=== PATIENT | male | born 1995 | race Caucasian/White ===

== ENCOUNTER 2017-01-30 09:34 | Emergency (ER) | payer OTHER ==
[~2017-01-30] VITALS: Wt 63.6 kg
[2017-01-30] MEDS ORDERED: ONDANSETRON 4 MG INJ IV STA (12:12)
[2017-01-30] MEDS ORDERED: KETOROLAC 30 MG INJ IV STA (12:12)
[2017-01-30] MEDS ORDERED: SOD CHLORIDE 0.9% 1,000 ML IV STA (12:12)
[2017-01-30] MEDS ORDERED: ACETAMINOPHEN 325 MG TAB PO ONE (12:30)
[2017-01-30 13:18] LABS: BASOPHILS % 0.2 % (0.0-2.0); HEMOGLOBIN 15.4 g/dl (14.0-18.0); LYMPHOCYTES # 0.8 10^3/ul (0.8-2.9); LYMPHOCYTES % 6.5 % (15.0-51.0); MEAN CORPUSCULAR HEMOGLOBIN 30.3 pg (29.0-33.0); MEAN CORPUSCULAR VOLUME 86.6 fl (82.0-101.0); MONOCYTE # 0.6 10^3/ul (0.3-0.9); MONOCYTES % 4.6 % (0.0-11.0); NEUTROPHILS % 88.4 % (39.0-77.0); PLATELET COUNT 163 10^3/UL (140-415); RED BLOOD COUNT 5.08 10^6/ul (4.70-6.10); RED CELL DISTRIBUTION WIDTH 11.8 % (11.5-14.5); WHITE BLOOD COUNT 12.7 10^3/ul (4.8-10.8)
[2017-01-30 13:33] LABS: ADD UMIC YES; UR ASCORBIC ACID NEGATIVE (NEGATIVE); UR BILIRUBIN (Dip) NEGATIVE (NEGATIVE); UR BLOOD (Dip) 2+ mg/dL (NEGATIVE); UR CLARITY CLEAR (CLEAR); UR COLOR YELLOW (YELLOW); UR GLUCOSE (Dip) NEGATIVE (NEGATIVE); UR KETONES (Dip) NEGATIVE (NEGATIVE); UR LEUKOCYTE ESTERASE (Dip) NEGATIVE Leu/ul (NEGATIVE); UR MUCUS MANY /HPF (NONE SEEN); UR NITRITE (Dip) NEGATIVE (NEGATIVE); UR RBC 1 /HPF (0-5); UR SPECIFIC GRAVITY (Dip) 1.021 (1.003-1.030); UR TOTAL PROTEIN (Dip) NEGATIVE (NEGATIVE); UR UROBILINOGEN (Dip) NEGATIVE (NEGATIVE)
[2017-01-30 13:44] LABS: ALBUMIN/GLOBULIN RATIO 1.51; BILIRUBIN,INDIRECT 0.4 mg/dl (0-1.1); BILIRUBIN,TOTAL 0.4 mg/dl (0.2-1.3); CALCIUM 9.7 mg/dl (8.4-10.2); CREATININE 0.99 mg/dl (0.61-1.24); TOTAL PROTEIN 8.3 g/dl (6.1-8.1)
[2017-01-30] MEDS ORDERED: ACET500C5 PO (14:23)
[2017-01-30] MEDS ORDERED: ONDA8TAB14 PO (14:23)
[2017-01-30] MEDS ORDERED: IBUP-1542 PO (14:23)
--- NOTE | 2017-01-30 14:27 | ERD ---
ER Documentation Chief Complaint Date/Time DATE: 01/30/17 TIME: 14:24 Chief Complaint randle, n/v HPI This 21-year-old male complains of fever and headache and vomiting for last 2 days. Denies diarrhea or abdominal pain. Has history of migraines in the soles similar although somewhat worse. He is taking one ibuprofen at home without relief. ROS All systems reviewed and are negative except as per history of present illness. Medications Home Meds Active Scripts Ibuprofen* (Motrin*) 600 Mg Tab, 600 MG PO Q6, #15 TAB Prov:LIZ KIDD MD 01/30/17 Acetaminophen* (Tylophen*) 500 Mg Capsule, 1 CAP PO Q6H Y for PAIN AND OR ELEVATED TEMP, #15 CAP Prov:LIZ KIDD MD 01/30/17 Ondansetron (Ondansetron Odt) 8 Mg Tab.rapdis, 8 MG PO Q6H Y for NAUSEA AND/OR VOMITING, #8 TAB Prov:LIZ KIDD MD 01/30/17 Allergies Allergies: Coded Allergies: No Known Allergy (Unverified , 04/19/13) PMhx/Soc Hx Miscellaneous Medical Probl: No (DENIES SURGERIES/PMH) Hx Alcohol Use: No Hx Substance Use: No Hx Tobacco Use: No Physical Exam Vitals Vital Signs Date Time Temp Pulse Resp B/P Pulse Ox O2 Delivery O2 Flow Rate FiO2 01/30/17 10:08 101.4 106 20 112/67 95 Physical Exam Const: []Alert, [id number]. Head: Atraumatic Eyes: Normal Conjunctiva ENT: Normal External Ears, Nose and Mouth.Oropharynx and TMs normal. Neck: Full range of motion..~ No meningismus. Resp: Clear to auscultation bilaterally Cardio: Regular rate and rhythm, no murmurs Abd: Soft, non tender, non distended. Normal bowel sounds Skin: No petechiae or rashes Back: No midline or flank tenderness Ext: No cyanosis, or edema Neur: Awake and alert. No appreciable focal neurologic deficits. Negative Kernig's and visits the sign. Psych: Normal Mood and Affect Result Diagram: 01/30/17 1250 01/30/17 1250 Results 24 hrs Laboratory Tests Test 01/30/17 12:50 White Blood Count 12.710^3/ul Red Blood Count 5.0810^6/ul Hemoglobin 15.4g/dl Hematocrit 44.0% Mean Corpuscular Volume 86.6fl Mean Corpuscular Hemoglobin 30.3pg Mean Corpuscular Hemoglobin Concent 35.0g/dl Red Cell Distribution Width 11.8% Platelet Count 85230^3/UL Mean Platelet Volume 10.0fl Neutrophils % 88.4% Lymphocytes % 6.5% Monocytes % 4.6% Eosinophils % 0.0% Basophils % 0.2% Nucleated Red Blood Cells % 0.0/100WBC Neutrophils # (Manual) 11.210^3/ul Lymphocytes # 0.810^3/ul Monocytes # 0.610^3/ul Eosinophils # 0.010^3/ul Basophils # 0.010^3/ul Nucleated Red Blood Cells # 0.010^3/ul Urine Color YELLOW Urine Clarity CLEAR Urine pH 5.0 Urine Specific [place] 1.021 Urine Ketones NEGATIVEmg/dL Urine Nitrite NEGATIVEmg/dL Urine Bilirubin NEGATIVEmg/dL Urine Urobilinogen NEGATIVEmg/dL Urine Leukocyte Esterase NEGATIVELeu/ul Urine Microscopic RBC 1/HPF Urine Microscopic WBC 2/HPF Urine Mucus MANY/HPF Urine Hemoglobin 2+mg/dL Urine Glucose NEGATIVEmg/dL Urine Total Protein NEGATIVEmg/dl Sodium Level 146mmol/L Potassium Level 4.0mmol/L Chloride Level 99mmol/L Carbon Dioxide Level 28mmol/L Anion Gap 23 Blood Urea Nitrogen 12mg/dl Creatinine 0.99mg/dl Glucose Level 103mg/dl Calcium Level 9.7mg/dl Total Bilirubin 0.4mg/dl Direct Bilirubin 0.00mg/dl Indirect Bilirubin 0.4mg/dl Aspartate Amino Transf (AST/SGOT) 28IU/L Alanine Aminotransferase (ALT/SGPT) 37IU/L Alkaline Phosphatase 91IU/L Total Protein 8.3g/dl Albumin 5.0g/dl Globulin 3.30g/dl Albumin/Globulin Ratio 1.51 Lipase 37U/L Current Medications Medications (Trade) Dose Ordered Sig/Tamie Route PRN Reason Start Time Stop Time Status Last Admin Dose Admin Sodium Chloride (NS) 1,000 ml @ 1,000 mls/hr Q1H STAT IV 01/30/17 12:12 01/30/17 13:11 DC 01/30/17 12:49 Ondansetron HCl (Zofran Inj) 4 mg ONCE STAT IV 01/30/17 12:12 01/30/17 12:14 DC 01/30/17 12:48 Ketorolac Tromethamine (Toradol) 30 mg ONCE STAT IV 01/30/17 12:12 01/30/17 12:14 DC 01/30/17 12:49 Acetaminophen (Tylenol Tab) 650 mg ONCE ONCE PO 01/30/17 12:30 01/30/17 12:31 DC 01/30/17 12:49 Procedures/MDM Patient was given 1 L normal saline IV, Toradol 30 mg IV and Zofran 4 mg IV. Patient had resolution of symptoms after observation treatment. CBC shows slight leukocytosis otherwise no acute findings. Patient presents with vomiting headache and fever for last 2 days. Current signs and symptoms do not suggest meningitis. He may have an acute viral illness. He will be treated with Zofran and Tylenol and ibuprofen at home and further observation. The patient was stable with no new complaints during the ER course. Clinically, there is no current evidence to suggest meningitis, sepsis, acute abdomen, pneumonia, acute coronary syndrome, pulmonary embolism, or any other emergent condition appearing to require further evaluation or hospitalization. The patient should certainly return for any new or worsening symptoms per the aftercare instructions. They should otherwise follow-up with her primary care doctor for reevaluation this week. Disclaimer: Inadvertent spelling and grammatical errors are likely due to EHR/dictation software use and do not reflect on the overall quality of patient care. Also, please note that the electronic time recorded on this note does not necessarily reflect the actual time of the patient encounter. Departure Diagnosis: Primary Impression: Vomiting Vomiting type: unspecified Vomiting Intractability: unspecified Nausea presence: unspecified Qualified Code: R11.10 - Vomiting, intractability of vomiting not specified, presence of nausea not specified, unspecified vomiting type Additional Impression: Headache Headache type: unspecified Headache chronicity pattern: unspecified pattern Intractability: not intractable Qualified Code: R51 - Nonintractable headache, unspecified chronicity pattern, unspecified headache type Condition: Stable Patient Instructions: Fever Control (Adult), Headache, Unspecified, Vomiting ( 6Y-Adult) Additional Instructions: Suspect viral illness which may last 2-4 days. Recheck for new or worsening symptoms with primary care doctor. Rest and drink fluids at home. LIZ KIDD MD Jan 30, 2017 14:27
== END 2017-01-30 14:30 | disposition home or self-care (01) ==
LOC: FTE 09:34
DX: R11.10 Vomiting, unspecified (principal)
CPT/HCPCS: 36415; 80053; 81001; 83690; 85025; 96374; 96375; J1885; J2405; J7030; Z7502; Z7610